=== PATIENT | female | born 1965 | race Asian ===

== ENCOUNTER 2016-12-31 19:17 | Emergency (ER) | payer OTHER ==
[~2016-12-31] VITALS: Ht 149.9 cm; Wt 47.0 kg
[2016-12-31] MEDS ORDERED: PREDNISONE20 MG PO (20:48)
[2016-12-31 21:28] VITALS: BP 129/88
== END 2016-12-31 21:29 | disposition home or self-care (01) ==
LOC: EME → EDBD 19:17 → EME 21:29
DX: T78.40XA Allergy, unspecified, initial encounter (principal)
CPT/HCPCS: 94640; 99281; 99284; J1200; J7644; S0028